=== PATIENT | female | born 1975 | race Caucasian/White ===

== ENCOUNTER 2018-03-27 21:49 | Inpatient (IN) ==
[2018-03-30 11:56] VITALS: BP 106/64
== END 2018-03-30 12:00 | disposition home or self-care (01) | DRG 494 ==
LOC: N.ED 21:49 → N.EDINP 03-28 01:32 → N.3E 03-28 02:30
PROVIDERS: ADMIT Orthopaedic Surgery; ATTEND Orthopaedic Surgery